=== PATIENT | male | born 1945 | race Caucasian/White ===

== ENCOUNTER 2016-04-12 17:33 | Inpatient (IN) | payer MEDICARE, SELFPAY ==
[2016-04-12] MEDS ORDERED: methylPREDNISolone SOD SUCCI 125 MG/2 ML VIAL IV STA (17:45)
[2016-04-12] MEDS ORDERED: IPRATROPIUM-ALBUTEROL 3 ML NEB INHALATION STA (17:45)
--- NOTE | 2016-04-12 17:48 | ED ---
SOB HPI - General Chief Complaint: Shortness of Breath Stated Complaint: GAYATRI exam 19 Time Seen by Provider: 04/12/16 17:44 - History of Present Illness Initial Comments: This is a 70-year-old male with a history of COPD, CAD with a pacemaker who presents emergency department for progressively worsening short of breath over last couple of days. He states he has had a productive cough. No fevers or chills. No bowel pain. No chest pain. Denies any lower [place] swelling. No recent travel. He states he was using his inhalers at home however did not have any improvement. He does not wear any oxygen at home typically. The patient was given breathing treatments in route and was on 10 L nasal cannula however continued to have labored breathing. On arrival the patient was using accessory muscles and was diffusely wheezing and started on BiPAP. - Related Data Home Medications Medication Instructions Recorded Confirmed ALPRAZolam [Xanax] 0.25 mg PO DAILY PRN 10/27/15 04/12/16 Albuterol Nebulized [Ventolin 2.5 mg INHALATION RT-BID 10/27/15 04/12/16 Nebulized] Budesonide [Pulmicort] 0.5 mg INHALATION RT-BID 10/27/15 04/12/16 Carvedilol [Coreg] 6.25 mg PO BID 10/27/15 04/12/16 Citalopram Hydrobromide 20 mg PO DAILY 10/27/15 04/12/16 Edoxaban Tosylate [Savaysa] 60 mg PO DAILY 10/27/15 04/12/16 Ipratropium Nebulized [Atrovent 0.5 mg INHALATION RT-BID 10/27/15 04/12/16 Nebulized] Ramipril [Altace] 5 mg PO DAILY 10/27/15 04/12/16 Simvastatin [Zocor] 20 mg PO HS 10/27/15 04/12/16 Azithromycin [Zithromax Z-pack] See Taper PO DAILY 04/12/16 04/12/16 Formoterol Fumarate [Perforomist] 20 mcg INHALATION RT-BID 04/12/16 04/12/16 Furosemide [Lasix] 20 mg PO DAILY 04/12/16 04/12/16 methylPREDNISolone Dose Pack See Taper PO DAILY 04/12/16 04/12/16 [Medrol Dose Pack] Allergies Allergy/AdvReac Type Severity Reaction Status Date / Time apixaban [From Eliquis] Allergy Rash/Hives Verified 10/27/15 11:10 doxycycline calcium Allergy Unknown Verified 04/12/16 18:37 [From Vibramycin] doxycycline hyclate Allergy Unknown Verified 04/12/16 18:37 [From Vibramycin] doxycycline monohydrate Allergy Unknown Verified 04/12/16 18:37 [From Vibramycin] Review of Systems ROS Statement: Those systems with pertinent positive or pertinent negative responses have been documented in the HPI. ROS Other: All systems not noted in ROS Statement are negative. Past Medical History Past Medical History: COPD, Hyperlipidemia, Osteoarthritis (OA) Additional Past Medical History / Comment(s): see Dr Abdullahi H&P History of Any Multi-Drug Resistant Organisms: None Reported Past Surgical History: Coronary Bypass/CABG, Tonsillectomy Past Anesthesia/Blood Transfusion Reactions: No Reported Reaction Past Psychological History: Anxiety Smoking Status: Former smoker Past Alcohol Use History: Occasional Additional Past Alcohol Use History / Comment(s): quit smoking 2012, smoked for 35 yrs, 1/2 PPD Past Drug Use History: None Reported - Past Family History Brother(s) Family Medical History: Cancer General Exam - General Exam Comments Initial Comments: Constitutional: Awake alert appears in moderate respiratory distress Head: Normocephalic atraumatic Eyes: no conjunctival injection No scleral icterus EOMI Neck: No JVD Supple Heart: Regular rate rhythm normal S1-S2 no murmurs Lungs: There is tachypnea with accessory muscle usage and bilateral inspiratory and expiratory wheezing No rales Abdomen: Soft nondistended nontender Extremities: Non edematous DP pulses intact Radial pulses intact Neuro: A&Ox3 No focal neurologic deficits Psych: Appropriate mood and affect Course Vital Signs 04/12/16 04/12/16 04/12/16 17:59 18:48 19:02 Temperature 97.9 F Pulse Rate 70 60 60 Respiratory 18 Rate Blood Pressure 103/68 O2 Sat by Pulse 94 L Oximetry 04/12/16 04/12/16 19:05 20:00 Temperature Pulse Rate 67 60 Respiratory 18 18 Rate Blood Pressure 100/63 107/64 O2 Sat by Pulse 100 97 Oximetry - Reevaluation(s) Reevaluation #1: 04/12/16 19:58 EKG showing a ventricular paced rhythm with a rate of 72. Appropriate ST segment changes for pacemaker. QTC is 516 in QRS is prolonged because of the pacemaker. No other acute changes. Medical Decision Making - Medical Decision Making This is a 70-year-old male presents emergency department for worsening shortness of breath. On arrival here he appeared to be in moderate respiratory distress requiring BiPAP. He is very wheezy. He was given a DuoNeb treatment and steroids. After a couple of hours of BiPAP the patient felt much improved and was weaned off to a Ventimask. He is currently very comfortable at bedside. He does have a leukocytosis. Chest x-ray was reviewed and did not show any pneumonia however the leukocytosis may be due to his steroids that he got yesterday however there is concern for infectious etiology as well the patient was started on Levaquin. I like to keep him overnight for monitorin Dr. antunez accepts the admission. - Lab Data Result diagrams: 04/12/16 17:30 04/12/16 18:55 Lab Results 04/12/16 04/12/16 04/12/16 Range/Units 17:30 17:30 17:30 WBC 21.1 H (3.8-10.6) k/uL RBC 5.03 (4.30-5.90) m/uL Hgb 15.3 (13.0-17.5) gm/dL Hct 46.9 (39.0-53.0) % MCV 93.3 (80.0-100.0) fL MCH 30.5 (25.0-35.0) pg MCHC 32.6 (31.0-37.0) g/dL RDW 13.9 (11.5-15.5) % Plt Count 303 (150-450) k/uL Neutrophils % 86 % Lymphocytes % 8 % Monocytes % 4 % Eosinophils % 0 % Basophils % 1 % Neutrophils # 18.1 H (1.3-7.7) k/uL Lymphocytes # 1.7 (1.0-4.8) k/uL Monocytes # 0.8 (0-1.0) k/uL Eosinophils # 0.1 (0-0.7) k/uL Basophils # 0.2 (0-0.2) k/uL VBG pH (7.31-7.41) VBG pCO2 (37-51) mmHg VBG HCO3 (24-28) mmol/L Sodium (137-145) mmol/L Potassium (3.5-5.1) mmol/L Chloride (98-107) mmol/L Carbon Dioxide (22-30) mmol/L Anion Gap mmol/L BUN (9-20) mg/dL Creatinine (0.66-1.25) mg/dL Est GFR (MDRD) Af Amer (>60 ml/min/1.73 sqM) Est GFR (MDRD) Non-Af (>60 ml/min/1.73 sqM) Glucose (74-99) mg/dL Calcium (8.4-10.2) mg/dL Magnesium (1.6-2.3) mg/dL Total Bilirubin (0.2-1.3) mg/dL AST (17-59) U/L ALT (21-72) U/L Alkaline Phosphatase (38-126) U/L CK-MB (CK-2) 4.3 H* (0.0-2.4) ng/mL Troponin I 0.046 H* (0.000-0.034) ng/mL NT-Pro-B Natriuret Pep 99036 pg/mL Total Protein (6.3-8.2) g/dL Albumin (3.5-5.0) g/dL Influenza Type A RNA (Not Detectd) Influenza Type B (PCR) (Not Detectd) 04/12/16 04/12/16 04/12/16 Range/Units 18:55 19:50 19:50 WBC (3.8-10.6) k/uL RBC (4.30-5.90) m/uL Hgb (13.0-17.5) gm/dL Hct (39.0-53.0) % MCV (80.0-100.0) fL MCH (25.0-35.0) pg MCHC (31.0-37.0) g/dL RDW (11.5-15.5) % Plt Count (150-450) k/uL Neutrophils % % Lymphocytes % % Monocytes % % Eosinophils % % Basophils % % Neutrophils # (1.3-7.7) k/uL Lymphocytes # (1.0-4.8) k/uL Monocytes # (0-1.0) k/uL Eosinophils # (0-0.7) k/uL Basophils # (0-0.2) k/uL VBG pH 7.27 L (7.31-7.41) VBG pCO2 49 (37-51) mmHg VBG HCO3 22 L (24-28) mmol/L Sodium 138 (137-145) mmol/L Potassium 5.5 H (3.5-5.1) mmol/L Chloride 101 (98-107) mmol/L Carbon Dioxide 22 (22-30) mmol/L Anion Gap 15 mmol/L BUN 36 H (9-20) mg/dL Creatinine 1.12 (0.66-1.25) mg/dL Est GFR (MDRD) Af Amer >60 (>60 ml/min/1.73 sqM) Est GFR (MDRD) Non-Af >60 (>60 ml/min/1.73 sqM) Glucose 136 H (74-99) mg/dL Calcium 9.3 (8.4-10.2) mg/dL Magnesium 2.3 (1.6-2.3) mg/dL Total Bilirubin 1.0 (0.2-1.3) mg/dL AST 93 H (17-59) U/L ALT 107 H (21-72) U/L Alkaline Phosphatase 102 (38-126) U/L CK-MB (CK-2) (0.0-2.4) ng/mL Troponin I (0.000-0.034) ng/mL NT-Pro-B Natriuret Pep pg/mL Total Protein 7.5 (6.3-8.2) g/dL Albumin 4.2 (3.5-5.0) g/dL Influenza Type A RNA Detected A (Not Detectd) Influenza Type B (PCR) Not Detected (Not Detectd) Disposition Clinical Impression: Hypercapnic respiratory failure, Influenza, Bronchitis Disposition: ADMITTED IP TO THIS HOSP Condition: Stable Referrals: Neptali Conn DO [Primary Care Provider] - 1-2 days
[2016-04-12 18:29] LABS: Basophils # (A) 0.2 k/uL (0-0.2); Basophils % (A) 1 %; CH 30.3; CHCM 32.6; Eosinophils # (A) 0.1 k/uL (0-0.7); Eosinophils % (A) 0 %; HCT 46.9 % (39.0-53.0); HDW 2.62; HGB 15.3 gm/dL (13.0-17.5); Immature Gran Flag Slight; Luc # (Auto) 0.23; Luc % (Auto) 1; Lymphocytes # (A) 1.7 k/uL (1.0-4.8); Lymphocytes % (A) 8 %; MCH 30.5 pg (25.0-35.0); MCHC 32.6 g/dL (31.0-37.0); MCV 93.3 fL (80.0-100.0); Mean Platelet Volume 8.1; Monocytes # (A) 0.8 k/uL (0-1.0); Monocytes % (A) 4 %; Neutrophils # (A) 18.1 k/uL (1.3-7.7); Neutrophils % (A) 86 %; RBC 5.03 m/uL (4.30-5.90); RDW 13.9 % (11.5-15.5); WBC 21.1 k/uL (3.8-10.6); WBC (Perox) 21.31
[2016-04-12 19:09] LABS: Creatine Kinase MB 4.3 ng/mL (0.0-2.4); Troponin I 0.046 ng/mL (0.000-0.034)
--- NOTE | 2016-04-12 19:19 | XR ---
EXAMINATION TYPE: XR chest 1V DATE OF EXAM: 04/12/2016 7:10 PM COMPARISON: 11/02/2015 HISTORY: Difficulty breathing TECHNIQUE: Single frontal view of the chest is obtained. FINDINGS: There is no heart failure nor confluent pneumonic infiltrate. There are no hilar masses. H eart size is normal. There are sternal wires. There is a left axillary pacemaker with the lead tips i n the right ventricle. There are chest leads. IMPRESSION: No active cardiopulmonary disease. There is clearing of a rounded small infiltrate over the left upper lobe since last exam.
[2016-04-12 19:20] LABS: ALT 107 U/L (21-72); AST 93 U/L (17-59); Alkaline Phosphatase 102 U/L (38-126); Anion Gap 15 mmol/L; Blood Urea Nitrogen 36 mg/dL (9-20); Calcium 9.3 mg/dL (8.4-10.2); Carbon Dioxide 22 mmol/L (22-30); Chloride 101 mmol/L (98-107); Glucose 136 mg/dL (74-99); Magnesium 2.3 mg/dL (1.6-2.3); Non-African American GFR(MDRD) >60 (>60 ml/min/1.73 sqM); Potassium 5.5 mmol/L (3.5-5.1); Sodium 138 mmol/L (137-145); Total Protein 7.5 g/dL (6.3-8.2)
[2016-04-12] MEDS ORDERED: LEVOFLOXACIN 500MG-D5W PMX 500 MG in DEXTROSE/WATER 1 100ML.BAG IVPB STA (19:34)
[2016-04-12 20:03] LABS: VBG PH 7.27 (7.31-7.41)
[2016-04-12] MEDS ORDERED: ACETAMINOPHEN TAB 325 MG TAB PO PRN (20:20)
[2016-04-12] MEDS ORDERED: NALOXONE 0.4 MG/ML 1 ML VIAL IV PRN (20:20)
[2016-04-12] MEDS ORDERED: ALPRAZolam 0.25 MG TAB PO PRN (20:23)
[2016-04-12 22:00] LABS: Glucose,Whole Blood 106 mg/dL (75-99)
[2016-04-12 22:23] VITALS: BMI 21.4
[2016-04-12] MEDS: ATORVASTATIN 10 MG TAB PO SCH (22:31)
[2016-04-12] MEDS: CARVEDILOL 6.25 MG TAB PO SCH (22:31)
[2016-04-12] MEDS: methylPREDNISolone SOD SUCCI 125 MG/2 ML VIAL IV SCH (22:31)
[2016-04-12] MEDS: OSELTAMIVIR 75 MG CAP PO SCH (22:31)
[2016-04-13] MEDS: MENTHOL (NICE) LOZENGE MUCOUS MEM PRN ×3 (00:14→05:27)
[2016-04-13 00:40] LABS: Creatine Kinase MB 4.8 ng/mL (0.0-2.4); Troponin I 0.054 ng/mL (0.000-0.034)
[2016-04-13] MEDS: IPRATROPIUM-ALBUTEROL 3 ML NEB INHALATION PRN ×2 (02:07→08:21)
[2016-04-13] MEDS ORDERED: BENZONATATE 100 MG CAP PO PRN (05:02)
[2016-04-13 05:57] LABS: Basophils % (A) 0 %; CH 29.9; CHCM 33.2; Eosinophils % (A) 0 %; HDW 2.64; HGB 13.5 gm/dL (13.0-17.5); Luc # (Auto) 0.04; Luc % (Auto) 1; Lymphocytes # (A) 0.3 k/uL (1.0-4.8); Lymphocytes % (A) 3 %; MCH 29.9 pg (25.0-35.0); MCHC 33.1 g/dL (31.0-37.0); MCV 90.5 fL (80.0-100.0); Mean Platelet Volume 6.5; Monocytes # (A) 0.3 k/uL (0-1.0); Monocytes % (A) 3 %; Neutrophils # (A) 9.1 k/uL (1.3-7.7); Neutrophils % (A) 93 %; RBC 4.53 m/uL (4.30-5.90); RDW 13.6 % (11.5-15.5); WBC 9.8 k/uL (3.8-10.6); WBC (Perox) 10.07
[2016-04-13 06:30] LABS: ALT 86 U/L (21-72); AST 58 U/L (17-59); Alkaline Phosphatase 87 U/L (38-126); Anion Gap 12 mmol/L; Blood Urea Nitrogen 36 mg/dL (9-20); Carbon Dioxide 24 mmol/L (22-30); Chloride 101 mmol/L (98-107); Glucose 110 mg/dL (74-99); Non-African American GFR(MDRD) >60 (>60 ml/min/1.73 sqM); Potassium 5.1 mmol/L (3.5-5.1); Sodium 137 mmol/L (137-145); Total Bilirubin 0.7 mg/dL (0.2-1.3); Total Protein 6.5 g/dL (6.3-8.2)
[2016-04-13 06:37] LABS: Troponin I 0.034 ng/mL (0.000-0.034)
[2016-04-13 07:18] LABS: Creatine Kinase MB 4.5 ng/mL (0.0-2.4)
[2016-04-13] MEDS: CITALOPRAM HYDROBROMIDE 20 MG TAB PO SCH (08:17)
[2016-04-13] MEDS: CARVEDILOL 6.25 MG TAB PO SCH ×2 (08:17→17:18)
[2016-04-13] MEDS: FUROSEMIDE 20 MG TAB PO SCH (08:17)
[2016-04-13] MEDS: EDOXABAN TOSYLATE 60 MG TABLET PO SCH (08:17)
[2016-04-13] MEDS: LISINOPRIL 20 MG TAB PO SCH (08:19)
[2016-04-13] MEDS: OSELTAMIVIR 75 MG CAP PO SCH ×2 (08:20→19:49)
[2016-04-13] MEDS: methylPREDNISolone SOD SUCCI 125 MG/2 ML VIAL IV SCH (08:20)
[2016-04-13] MEDS: SODIUM CHLORIDE 0.9% 1,000 ML IV SCH (10:32)
[2016-04-13] MEDS: IPRATROPIUM-ALBUTEROL 3 ML NEB INHALATION SCH ×3 (13:38→20:14)
--- NOTE | 2016-04-13 14:02 | P.CNPUL ---
History of Present Illness Consult date: 04/13/16 Reason for consult: dyspnea History of present illness: 70-year-old male patient, known history of advanced COPD, known history of coronary artery disease with previous bypass surgery, congestion heart failure with an ejection fraction of less than 35% and chronic atrial fibrillation and hyperlipidemia, who is coming into the hospital because of worsening shortness of breath. The patient reports that his was having a respiratory illness/ a stretcher checked infection as she was babysitting for other children. Subsequently, the patient started having nasal and chest congestion, along with generalized weakness and fatigue followed by worsening shortness of breath and he got to the point where he was unable to speak of. This is. He was having a congested cough with limited amount of mucus production. Unsure if he had any fever although he felt feverish. The patient came into the hospital and he was found to be hypoxic and placed on high flow oxygen initially and he was briefly given BiPAP for breathing support. Influenza screen was positive and the patient was started on Tamiflu. The patient was also started on acute COPD exacerbation treatment with accommodation bronchodilators and steroids. No change in mental status. No headache. No nausea. No vomiting. No abdominal pain. No diarrhea. No other complaints otherwise for now. Review of Systems Further review of system was done and the positive findings are almost above in history of present illness Past Medical History Past Medical History: COPD, Hyperlipidemia, Osteoarthritis (OA) Additional Past Medical History / Comment(s): COPD, hyperlipidemia, coronary artery disease with multivessel involvement and the patient underwent a coronary artery bypass surgery and 1996, chronic atrial fibrillation, hypertension History of Any Multi-Drug Resistant Organisms: None Reported Past Surgical History: Coronary Bypass/CABG, Tonsillectomy Additional Past Surgical History / Comment(s): AICD placement Past Anesthesia/Blood Transfusion Reactions: No Reported Reaction Past Psychological History: Anxiety Smoking Status: Former smoker Past Alcohol Use History: Occasional Additional Past Alcohol Use History / Comment(s): quit smoking 2012, smoked for 35 yrs, 1/2 PPD Past Drug Use History: None Reported - Past Family History Brother(s) Family Medical History: Cancer Medications and Allergies Home Medications Medication Instructions Recorded Confirmed Type ALPRAZolam [Xanax] 0.25 mg PO DAILY PRN 10/27/15 04/12/16 History Albuterol Nebulized [Ventolin 2.5 mg INHALATION RT-BID 10/27/15 04/12/16 History Nebulized] Budesonide [Pulmicort] 0.5 mg INHALATION RT-BID 10/27/15 04/12/16 History Carvedilol [Coreg] 6.25 mg PO BID 10/27/15 04/12/16 History Citalopram Hydrobromide 20 mg PO DAILY 10/27/15 04/12/16 History Edoxaban Tosylate [Savaysa] 60 mg PO DAILY 10/27/15 04/12/16 History Ipratropium Nebulized [Atrovent 0.5 mg INHALATION RT-BID 10/27/15 04/12/16 History Nebulized] Ramipril [Altace] 5 mg PO DAILY 10/27/15 04/12/16 History Simvastatin [Zocor] 20 mg PO HS 10/27/15 04/12/16 History Azithromycin [Zithromax Z-pack] See Taper PO DAILY 04/12/16 04/12/16 History Formoterol Fumarate [Perforomist] 20 mcg INHALATION RT-BID 04/12/16 04/12/16 History Furosemide [Lasix] 20 mg PO DAILY 04/12/16 04/12/16 History methylPREDNISolone Dose Pack See Taper PO DAILY 04/12/16 04/12/16 History [Medrol Dose Pack] Allergies Allergy/AdvReac Type Severity Reaction Status Date / Time apixaban [From Eliquis] Allergy Rash/Hives Verified 10/27/15 11:10 doxycycline calcium Allergy Unknown Verified 04/12/16 18:37 [From Vibramycin] doxycycline hyclate Allergy Unknown Verified 04/12/16 18:37 [From Vibramycin] doxycycline monohydrate Allergy Unknown Verified 04/12/16 18:37 [From Vibramycin] Physical Exam Vitals: Vital Signs Temp Pulse Pulse Resp BP BP Pulse Ox 04/13/16 13:42 68 04/13/16 13:24 68 04/13/16 12:00 97.0 F L 105 H 20 133/70 96 04/13/16 08:36 62 04/13/16 08:22 60 95 04/13/16 08:00 97.6 F 62 60 23 138/71 138/71 96 04/13/16 07:00 97.6 F 60 26 H 116/71 96 04/13/16 04:00 97.5 F L 60 66 18 116/71 97 04/13/16 02:15 61 04/13/16 02:00 60 04/13/16 00:00 98.3 F 60 18 119/75 97 04/12/16 23:10 66 18 04/12/16 22:00 59 L 20 131/75 96 04/12/16 21:21 98.9 F 62 18 123/77 97 04/12/16 21:02 97.7 F 66 20 131/75 97 Intake and Output 04/12/16 04/13/16 04/13/16 22:59 06:59 14:59 Intake Total 360 220 Output Total 320 375 Balance 40 -155 Intake: Intake, IV Titration 20 Amount Sodium Chloride 0.9% 1, 20 000 ml @ 20 mls/hr IV . Q24H [facility] Rx#:[id number] Oral 360 200 Output: Urine 320 375 Other: Voiding Method Toilet Urinal Weight 71.8 kg 71.9 kg Head exam was generally normal. There was no scleral icterus or corneal arcus. Mucous membranes were moist.Neck was supple and without jugular venous distension, thyromegaly, or carotid bruits. Carotids were easily palpable bilaterally. There was no adenopathy. Lung sounds are diminished bilaterally and there is diffuse expiratory wheezes throughout the lung brooks.Cardiac exam revealed the PMI to be normally situated and sized. The rhythm was regular and no extrasystoles were noted during several minutes of auscultation. The first and second heart sounds were normal and physiologic splitting of the second heart sound was noted. There were no murmurs, rubs, clicks, or gallops.Abdominal exam revealed normal bowel sounds. The abdomen was soft, non- tender, and without masses, organomegaly, or appreciable enlargement of the abdominal aorta.Examination of the extremities revealed easily palpable radial, femoral and pedal pulses. There was no cyanosis, clubbing or edema. Results - Laboratory Findings CBC and BMP: 04/13/16 05:09 04/13/16 05:09 Abnormal lab findings: Abnormal Labs 04/12/16 04/12/16 04/13/16 21:56 23:51 05:09 Neutrophils # 9.1 H Lymphocytes # 0.3 L BUN Glucose POC Glucose (mg/dL) 106 H ALT Total Creatine Kinase 444 H CK-MB (CK-2) 4.8 H* Troponin I 0.054 H* 04/13/16 04/13/16 05:09 05:09 Neutrophils # Lymphocytes # BUN 36 H Glucose 110 H POC Glucose (mg/dL) ALT 86 H Total Creatine Kinase 171 H CK-MB (CK-2) 4.5 H* Troponin I - Diagnostic Findings Chest x-ray: image reviewed Assessment and Plan Plan: Assessment 1 acute COPD exacerbation secondary to an acute influenza and respiratory infection/bronchitis. 2 worsening shortness of breath secondary to above 3 acute hypoxic respiratory failure secondary to above, improving 4 coronary artery disease with previous bypass surgery 5 congestion heart failure with impaired LV function 6 hyperlipidemia 7 hypertension 8 AICD placement for underlying cardiomyopathy Plan Agree on the current treatment. Continue bronchi dilators. Continue systemic steroids. Continue Tamiflu. Mucinex may be at 4 chest congestion. States further improvement over the next 24-48 hours. Keep the patient's appetite ventilation for now. May consider discharge within next 24-48 hours as the patient's condition improved. Mother the patient remains on a combination of Pulmicort and Brovana neb last treatment twice a day in addition to albuterol about treatments around the clock as needed.
--- NOTE | 2016-04-13 17:02 | HP ---
DATE OF ADMISSION: 04/12/2016 PRESENTING COMPLAINT: Cough, short of breath. HISTORY OF PRESENTING COMPLAINT: This is a very pleasant 70-year-old patient of , whose chronic stable medical conditions include coronary artery disease; ejection fraction of 20%, left bundle branch block. The patient started up with 3 days of increasing cough, congestion, decreased appetite, fever and found to have the flu. Patient also wheezing, short of breath and admitted for the same. REVIEW OF SYSTEMS: CONSTITUTIONAL: Tired. HEENT: As above. RESPIRATORY: As above. CARDIOVASCULAR: None. GASTROINTESTINAL: None. GENITOURINARY: None. MUSCULOSKELETAL: None. DERMATOLOGIC: None. HEMATOLOGIC: None. LYMPHATIC: None. PSYCHIATRY: None. NEUROLOGICAL: None. Past medical history of coronary artery disease, congestive heart failure; ejection fraction 20%, left bundle branch block, COPD, hyperlipidemia. Osteoarthritis. PAST SURGICAL HISTORY: Coronary artery bypass, tonsillectomy, ICD. SOCIAL HISTORY: The patient smoked for 35 years half a pack per day; stopped in 2012. Currently not employed. FAMILY HISTORY: Cancer. HOME MEDICATIONS: 1. Medrol Dosepak. 2. Perforomist 30 mcg inhalation b.i.d. 3. Zithromax taper. 4. Coreg 6.25 p.o. b.i.d. 5. Pulmicort 0.5 nebulizer b.i.d. 6. Ventolin 2.5 b.i.d. 7. Xanax 0.25 daily p.r.n. 8. Atrovent 0.5 nebulizer b.i.d. 9. Lasix 20 mg b.i.d. 10. Savaysa 60 mg p.o. daily. 11. Celexa 20 mg p.o. daily. 12. Zocor 20 mg q.h.s. 13. Altace 5 mg p.o. daily. ALLERGY TO ELIQUIS, VIBRAMYCIN, DOXYCYCLINE. On examination vital signs on presentation: Temperature 97.9, pulse 70, respiratory rate 18, blood pressure 103/58, pulse ox 94% on room air. GENERAL APPEARANCE: Average built, sitting up, short of breath. EYES: Pupils equal. Conjunctivae normal. HEENT: Oral cavity normal. NECK: JVD not raised. Mass not palpable. RESPIRATORY: Effort increased. LUNGS: Diminished breath sounds, prolonged expiration and wheezing. CARDIOVASCULAR: First and second sounds normal. No edema. ABDOMEN: Soft. Nontender. Liver and spleen not palpable. LYMPHATIC: No lymph node palpable in the neck or axillae. PSYCHIATRY: Alert and oriented x3. Mood and affect normal. NEUROLOGICAL: Pupils equal. Cranial nerves grossly intact. Power and sensation grossly intact. INVESTIGATIONS: White count 9.8, hemoglobin 13.5. Potassium 5.1, BUN 36, creatinine 0.90. Troponin 0.054, 0.034, 0.046. ProBNP 18,500. Influenza ( ) positive. Chest x-ray shows some cardiomegaly. No CHF. ASSESSMENT: 1. Acute chronic obstructive pulmonary disease exacerbation. 2. Acute influenza A infection. 3. Coronary artery disease with prior history of coronary artery bypass. 4. Chronic congestive heart failure from systolic dysfunction; ejection fraction 20%, compensated. 5. Chronic left bundle brunch block. 6. Automatic implantable cardioverter defibrillator. 7. Hyperlipidemia. 8. Primary osteoarthritis of multiple joints. 9. Depression, not otherwise specified. PLAN: Patient was put on Tamiflu. Home medications are resumed. Patient put on nebulized bronchodilator, IV Solu-Medrol. Care was discussed with the patient. Keep a close eye. Patient probably has a high resting BNP.
[2016-04-13] MEDS: methylPREDNISolone SOD SUCCI 40 MG/ML 1 ML VIAL IV SCH ×2 (17:18→23:37)
[2016-04-13] MEDS: ATORVASTATIN 10 MG TAB PO SCH (19:49)
[2016-04-14] MEDS: CARVEDILOL 6.25 MG TAB PO SCH (06:33)
[2016-04-14] MEDS: SODIUM CHLORIDE 0.9% 1,000 ML IV SCH (06:36)
[2016-04-14] MEDS: LISINOPRIL 20 MG TAB PO SCH (07:50)
[2016-04-14] MEDS: methylPREDNISolone SOD SUCCI 40 MG/ML 1 ML VIAL IV SCH (07:50)
[2016-04-14] MEDS: EDOXABAN TOSYLATE 60 MG TABLET PO SCH (07:50)
[2016-04-14] MEDS: FUROSEMIDE 20 MG TAB PO SCH (07:51)
[2016-04-14] MEDS: CITALOPRAM HYDROBROMIDE 20 MG TAB PO SCH (07:51)
[2016-04-14] MEDS: OSELTAMIVIR 75 MG CAP PO SCH (07:51)
[2016-04-14] MEDS ORDERED: BUDESONIDE 1 MG/2 ML NEBU INHALATION SCH (08:00)
[2016-04-14] MEDS ORDERED: FORMOTEROL FUMARATE 20 MCG/2 ML NEBU INHALATION SCH (08:00)
[2016-04-14] MEDS: IPRATROPIUM-ALBUTEROL 3 ML NEB INHALATION SCH ×3 (08:22→15:13)
[2016-04-14 08:39] VITALS: TEMP 98.2
[2016-04-14 12:17] VITALS: BP 117/66; RESP 18
--- NOTE | 2016-04-14 15:09 | P.PN ---
Subjective 70-year-old male patient, known history of advanced COPD, known history of coronary artery disease with previous bypass surgery, congestion heart failure with an ejection fraction of less than 35% and chronic atrial fibrillation and hyperlipidemia, who is coming into the hospital because of worsening shortness of breath. The patient reports that his was having a respiratory illness/ a stretcher checked infection as she was babysitting for other children. Subsequently, the patient started having nasal and chest congestion, along with generalized weakness and fatigue followed by worsening shortness of breath and he got to the point where he was unable to speak of. This is. He was having a congested cough with limited amount of mucus production. Unsure if he had any fever although he felt feverish. The patient came into the hospital and he was found to be hypoxic and placed on high flow oxygen initially and he was briefly given BiPAP for breathing support. Influenza screen was positive and the patient was started on Tamiflu. The patient was also started on acute COPD exacerbation treatment with accommodation bronchodilators and steroids. No change in mental status. No headache. No nausea. No vomiting. No abdominal pain. No diarrhea. No other complaints otherwise for now. On 04/14/2016 the patient is considerably improved. He is less short of breath. Enema cough and chest congestion over this is improved and the patient is able to speak of. This is an embolectomy the hallway without any major difficulties. He is still being treated for an acute influenza tracheal bronchitis and COPD exacerbation. He is currently off the BiPAP. No change in mental status. No other complaints overnight. Objective - Vital Signs Vital signs: Vital Signs Temp 98.2 F 04/14/16 12:00 Pulse 61 04/14/16 12:00 Resp 18 04/14/16 12:00 BP 117/66 04/14/16 12:00 Pulse Ox 95 04/14/16 12:00 Intake & Output 04/13/16 04/14/16 04/14/16 18:59 06:59 18:59 Intake Total 220 240 Output Total 375 Balance -155 240 Weight 70.6 kg Intake: IV 240 Sodium Chloride 0.9% 1, 240 000 ml @ 20 mls/hr IV . Q24H [facility] Rx#:[id number] Intake, IV Titration 20 Amount Sodium Chloride 0.9% 1, 20 000 ml @ 20 mls/hr IV . Q24H [facility] Rx#:[id number] Oral 200 Output: Urine 375 Other: Voiding Method Toilet Urinal # Voids 1 - Exam Head exam was generally normal. There was no scleral icterus or corneal arcus. Mucous membranes were moist.Neck was supple and without jugular venous distension, thyromegaly, or carotid bruits. Carotids were easily palpable bilaterally. There was no adenopathy. Lung sounds are diminished bilaterally along with some few scattered expiratory wheezes and some prolongation of the expiratory phase of breathing.Cardiac exam revealed the PMI to be normally situated and sized. The rhythm was regular and no extrasystoles were noted during several minutes of auscultation. The first and second heart sounds were normal and physiologic splitting of the second heart sound was noted. There were no murmurs, rubs, clicks, or gallops.Abdominal exam revealed normal bowel sounds. The abdomen was soft, non-tender, and without masses, organomegaly, or appreciable enlargement of the abdominal aorta.Examination of the extremities revealed easily palpable radial, femoral and pedal pulses. There was no cyanosis , clubbing or edema. - Labs CBC & Chem 7: 04/13/16 05:09 04/13/16 05:09 Assessment and Plan Plan: Assessment 1 acute COPD exacerbation secondary to an acute influenza and respiratory infection/bronchitis. On 04/14/2016, the patient is considerably improved. The patient got treated with a combination of bronchodilators, systemic steroids, Tamiflu and Mucinex. His breathing is much improved and he thinks is back to his baseline. 2 worsening shortness of breath secondary to above 3 acute hypoxic respiratory failure secondary to above, improving 4 coronary artery disease with previous bypass surgery 5 congestion heart failure with impaired LV function 6 hyperlipidemia 7 hypertension 8 AICD placement for underlying cardiomyopathy Plan The patient can be discharged home follow pulmonary standpoint. He'll completed his prednisone burst taper and Tamiflu on outpatient basis. He'll continue his routine breathing medications of bronchodilators. He will follow- up with Dr. Florez on outpatient basis.
[2016-04-14 15:15] VITALS: PULSE 72
--- NOTE | 2016-04-14 20:24 | DS ---
DATE OF ADMISSION: 04/12/2016 DATE OF DISCHARGE: 04/14/2016 FINAL DIAGNOSES: 1. Acute chronic obstructive pulmonary disease exacerbation secondary to acute influenza A pneumonitis, present on admission. 2. Coronary artery disease with prior history of coronary artery bypass. 3. Chronic congestive heart failure from systolic dysfunction; ejection fraction 20%, compensated. 4. Chronic left bundle branch block. 5. Automatic implantable cardioverter defibrillator. 6. Hyperlipidemia. 7. Primary osteoarthritis in multiple joints, bilateral. 8. Depression not otherwise specified. CONSULTATION: Dr. Wisdom from Pulmonary. HOSPITAL COURSE: This patient had influenza A pneumonitis causing COPD exacerbation, given Tamiflu, nebulized bronchodilators, steroids, to which he has responded well. On the day of discharge he is doing much better. On exam, lungs have decreased breath sounds. CARDIOVASCULAR: First and second seconds normal. DISCHARGE MEDICATIONS: 1. Xanax 0.25 p.o. daily p.r.n. 2. Ventolin 2.5 b.i.d. 3. Pulmicort 0.5 inhalation b.i.d. 4. Coreg 6.25 p.o. b.i.d. 5. Celexa 20 mg p.o. daily. 6. Savaysa 60 mg p.o. daily. 7. Atrovent 0.5 nebulizer b.i.d. 8. Altace 5 mg p.o. daily. 9. Zocor 20 mg p.o. at bedtime. 10. Perforomist 20 mcg inhalation b.i.d. 11. Lasix 20 mg p.o. daily. 12. Medrol Dosepak to complete. 13. Tessalon Perles 200 mg p.o. t.i.d. p.r.n. 14. Tamiflu 75 mg p.o. q.12; 6 doses. Follow up with Dr. Conn on 04/18/16.
== END 2016-04-14 16:59 | disposition home or self-care (01) | DRG 193 ==
LOC: EC 17:33 → 6ICU 20:20 → 6SEL 04-13 10:08
PROVIDERS: ADMIT Hospitalist; ATTEND Hospitalist
DX: J10.00 Influenza due to other identified influenza virus with unspecified type of pneumonia (principal); J96.01 Acute respiratory failure with hypoxia; J44.1 Chronic obstructive pulmonary disease with (acute) exacerbation; I50.22 Chronic systolic (congestive) heart failure; I42.8 Other cardiomyopathies; I48.2 Chronic atrial fibrillation; I11.0 Hypertensive heart disease with heart failure; I44.7 Left bundle-branch block, unspecified; J10.1 Influenza due to other identified influenza virus with other respiratory manifestations; I25.10 Atherosclerotic heart disease of native coronary artery without angina pectoris; E78.5 Hyperlipidemia, unspecified; M19.91 Primary osteoarthritis, unspecified site; F32.9 Major depressive disorder, single episode, unspecified; F41.9 Anxiety disorder, unspecified; Z95.1 Presence of aortocoronary bypass graft; Z95.810 Presence of automatic (implantable) cardiac defibrillator; Z87.891 Personal history of nicotine dependence; Z79.01 Long term (current) use of anticoagulants; Z79.51 Long term (current) use of inhaled steroids; Z79.52 Long term (current) use of systemic steroids; Z79.899 Other long term (current) drug therapy
CPT/HCPCS: 36415; 71010; 80053; 82550; 82553; 82803; 83735; 83880; 84484; 85025; 87502; 93005; 94640; 94660; 96365; 99285

== ENCOUNTER → 2016-06-01 | Outpatient (CLI) | payer MEDICARE ==
[2016-06-01 12:55] LABS: Blood Urea Nitrogen 24 mg/dL (9-20); Non-African American GFR(MDRD) 60 (>60 ml/min/1.73 sqM)
--- NOTE | 2016-06-01 17:12 | CT ---
EXAMINATION TYPE: CT chest w con DATE OF EXAM: 06/01/2016 1:26 PM COMPARISON: NONE HISTORY: Patient has no complaints at time of study. Follow up study for known SAPPHIRE nodule. CT DLP: 564 mGycm, Automated exposure control for dose reduction was used. CONTRAST: Performed injected with 100 mL of Omnipaque 300. TECHNIQUE: Axial images were obtained at 5 mm thick sections. Reconstructed images are reviewed on [employer] computer in the coronal plane. FINDINGS: Portion of the thyroid visualized is normal. No suspicious lung nodules or focal infiltrates are present. Multiple shotty lymph nodes are within the pretracheal space and the aortopulmonic window. The ascen ding aorta diameter at the level of the main pulmonary artery is 3.6 cm. The main pulmonary artery d iameter at the bifurcation is 2.[address] sections are obtained through the upper abdomen. Abdomen is essentially unremarkable. IMPRESSIONS: 1. Shotty lymphadenopathy within the mediastinum. No acute process is evident. 2. Previous left upper lobe nodule has resolved.
== END | disposition home or self-care (01) ==
LOC: RADCTMAIN 12:19
PROVIDERS: ATTEND Internal Medicine
DX: R91.8 Other nonspecific abnormal finding of lung field (principal); R59.0 Localized enlarged lymph nodes
CPT/HCPCS: 82565; 84520; 71260; Q9967

== ENCOUNTER → 2016-06-28 | Outpatient (CLI) | payer MEDICARE ==
[2016-06-28 13:52] LABS: ALT 25 U/L (21-72); AST 24 U/L (17-59); Alkaline Phosphatase 65 U/L (38-126); Anion Gap 7 mmol/L; Blood Urea Nitrogen 23 mg/dL (9-20); Calcium 9.5 mg/dL (8.4-10.2); Carbon Dioxide 30 mmol/L (22-30); Chloride 102 mmol/L (98-107); Cholesterol 148 mg/dL (<200); Glucose 103 mg/dL (74-99); HDL Cholesterol 66 mg/dL (40-60); Non-African American GFR(MDRD) >60 (>60 ml/min/1.73 sqM); Potassium 4.7 mmol/L (3.5-5.1); Sodium 139 mmol/L (137-145); Total Bilirubin 0.9 mg/dL (0.2-1.3); Triglycerides 67 mg/dL (<150)
--- NOTE | 2016-06-28 15:38 | CT ---
EXAMINATION TYPE: CT angio thoracic/abd aorta DATE OF EXAM: 06/28/2016 2:36 PM COMPARISON: 11/04/2015, 08/20/2014, 12/16/2012 HISTORY: 70-year-old male thoracic aneurysm, ruptured TECHNIQUE: Contiguous axial scanning of the chest and abdomen performed without and with IV Contrast, patient injected with 100 mL of Omnipaque 350. Coronal/sagittal MIP reconstructions performed. 3-D r econstructions generated on a dedicated independent workstation. CT DLP: 593.4 mGycm Automated exposure control for dose reduction was used. FINDINGS: CHEST: Left anterior chest wall AICD generator with right atrial, right ventricular, and coronary sinus lead s. Median sternotomy wires are present. The heart is normal size without pericardial effusion. - The ascending aorta is ectatic at 3.9 cm versus 4.0 cm measured on 12/16/2012. - Mild to moderate atherosclerotic change involving the aortic arch with conventional arch vessel bra nching anatomy. - There is mild aneurysm of the upper descending thoracic aorta at 3.2 cm versus 3.3 cm on 12/16/2012 . - Additional ectasia of the lower descending thoracic aorta at 2.8 cm versus 2.9 cm on 12/16/2012. Prominent precarinal lymph node measuring 1 cm is unchanged. Otherwise, no thoracic lymphadenopathy b y CT size criteria. Advanced emphysematous change. No consolidation or pleural effusion. ABDOMEN: There is a 1.1 cm hypodense lesion within the central left liver lobe likely small cyst. Gallbladder, adrenal glands, spleen, and atrophic pancreas show no gross abnormal mobility. Bilateral renal cortical thinning suggests chronic medical renal disease. Stable 1.5 cm hypodense les ion lower pole right kidney and small 1 cm or smaller hypodense lesions upper pole left kidney sugges tive of cysts. Moderate atherosclerotic calcifications and plaque throughout the abdominal aorta. - There is ectasia of the upper abdominal aorta 2.9 cm. - The origin of both celiac axis and SMA are patent. - Mild atherosclerotic calcifications at the origin of the right renal artery. - There is ectasia of the mid abdominal aorta just below the renal artery takeoff measuring 2.9 cm on both axial and sagittal series, unchanged from 08/20/2014. - There is fusiform aneurysm of the infrarenal abdominal aorta measuring 4.0 cm wide by 4.1 cm AP low sured on coronal and sagittal series. This is in comparison to 4.0 x 3.9 cm on 08/20/2014. Circumferent ial thrombus and plaque is present here. - There is a stable aneurysm (as compared to 08/20/2014) of the left common iliac artery measuring 1.9 cm with what appears to be a 2.2 cm long dissection narrowing the true lumen to approximately 4 mm. - The right common iliac artery shows moderate atherosclerotic calcifications but normal caliber. No dilated small bowel, free fluid, or free air. No mesenteric or retroperitoneal lymphadenopathy. Sc attered mild stool. Mild left hemicolonic diverticulosis without pericolonic inflammatory change. BONES: Laminectomy change within the lower lumbar spine. No osseous destructive process. IMPRESSION: 1. ECTASIA/BORDERLINE ANEURYSM ASCENDING AORTA AT 3.9 CM. ADDITIONAL MILD ANEURYSM UPPER DESCENDING T HORACIC AORTA (3.2 CM) AND ECTASIA OF THE DISTAL DESCENDING THORACIC AORTA (2.8 CM). NO SIGNIFICANT C HANGE FROM 12/16/2012. 2. ECTATIC ABDOMINAL AORTA WITH FUSIFORM AAA MEASURING 4.0 X 4.1 CM VERSUS 4.0 X 3.9 CM ON 08/20/2014, NOT SIGNIFICANTLY CHANGED. 3. 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 4. COPD WITH ADVANCED EMPHYSEMA AND MILD LEFT HEMICOLONIC DIVERTICULOSIS.
== END | disposition home or self-care (01) ==
LOC: RADCTMAIN 12:49
PROVIDERS: ATTEND Internal Medicine Interventional Cardiology
DX: I71.2 Thoracic aortic aneurysm, without rupture (principal); I71.4 Abdominal aortic aneurysm, without rupture; I72.3 Aneurysm of iliac artery; K57.30 Diverticulosis of large intestine without perforation or abscess without bleeding; E78.2 Mixed hyperlipidemia
CPT/HCPCS: 80061; 80053; 75635; 71275; 36415; Q9967

== ENCOUNTER 2016-07-15 09:29 | Inpatient (IN) | payer MEDICARE, SELFPAY ==
[~2016-07-15 09:29] MED LIST: EPINEPHrine 10 ML SYRINGE (0.1 MG/ML) ONE
[2016-07-15] MEDS ORDERED: DEXTROSE 5% IN WATER 100 ML with AMIODARONE 150 MG IV ONE (09:42)
[2016-07-15] MEDS ORDERED: AMIODARONE 450 MG in DEXTROSE 5% IN WATER 250 ML IV ONE ×2 (09:42)
[2016-07-15] MEDS ORDERED: RX INFO: IV CONTRAST WAS GIVEN 1 EACH MISC MISCELLANE PRN (09:49)
--- NOTE | 2016-07-15 09:49 | ED ---
General Adult HPI - General Stated complaint: Unresponsive Time Seen by Provider: 07/15/16 09:29 Source: family, EMS Mode of arrival: EMS Limitations: altered mental status, physical limitation - History of Present Illness Initial comments: Patient is a 70-year-old male presenting to the emergency department priority one by EMS. Patient originally had called for difficulty in breathing. EMS received a call at 8:48 AM. He did arrive at 852. 09/26/1955 EMS did witness loss of pulse with respiratory rate 3-4 per minute. Patient is unresponsive and provides no information. Patient had recent computed tomography scan showing several areas of aneurysm throughout the aorta with some chronic dissection. Patient was recently discharged from [facility]. Patient has chronic COPD. There was question whether or not patient has a DO NOT RESUSCITATE order. Further information taking from the states that is a standard order that if patient is unable to be returned to a normal state that he would not want prolonged care. EMS did provide to epinephrine. They state patient's defibrillator has gone off. - Related Data Home Medications Medication Instructions Recorded Confirmed Budesonide [Pulmicort] 0.5 mg INHALATION RT-BID 10/27/15 07/15/16 Citalopram Hydrobromide 20 mg PO QAM 10/27/15 07/15/16 [Citalopram HBr] Edoxaban Tosylate [Savaysa] 60 mg PO QAM 10/27/15 07/15/16 Ramipril [Altace] 5 mg PO QAM 10/27/15 07/15/16 Simvastatin [Zocor] 20 mg PO HS 10/27/15 07/15/16 Formoterol Fumarate [Perforomist] 20 mcg INHALATION RT-BID 04/12/16 07/15/16 Furosemide [Lasix] 20 mg PO QAM 04/12/16 07/15/16 methylPREDNISolone Dose Pack See Taper PO DAILY 04/12/16 07/15/16 [Medrol Dose Pack] ALPRAZolam [Xanax] 0.125 mg PO BID PRN 07/15/16 07/15/16 ALPRAZolam [Xanax] 0.25 mg PO BID PRN 07/15/16 07/15/16 Albuterol Inhaler [Ventolin Hfa 2 puff INHALATION RT-Q6H PRN 07/15/16 07/15/16 Inhaler] Carvedilol [Coreg] 6.25 mg PO BID 07/15/16 07/15/16 Ipratropium-Albuterol Nebulize 3 ml INHALATION RT-TID PRN 07/15/16 07/15/16 [Duoneb 0.5 mg-3 mg/3 ml Soln] Allergies Allergy/AdvReac Type Severity Reaction Status Date / Time apixaban [From Eliquis] Allergy Rash/Hives Verified 07/15/16 11:32 doxycycline Allergy Rash/Hives Verified 07/15/16 11:32 Review of Systems ROS Statement: Those systems with pertinent positive or pertinent negative responses have been documented in the HPI. ROS Other: All systems not noted in ROS Statement are negative. Limitations: ROS unobtainable due to patients medical condition Respiratory: Reports: dyspnea Past Medical History Past Medical History: COPD, Hyperlipidemia, Osteoarthritis (OA) Additional Past Medical History / Comment(s): COPD, hyperlipidemia, coronary artery disease with multivessel involvement and the patient underwent a coronary artery bypass surgery and 1996, chronic atrial fibrillation, hypertension History of Any Multi-Drug Resistant Organisms: None Reported Past Surgical History: Coronary Bypass/CABG, Tonsillectomy Additional Past Surgical History / Comment(s): AICD placement Past Anesthesia/Blood Transfusion Reactions: No Reported Reaction Past Psychological History: Anxiety Smoking Status: Former smoker Past Alcohol Use History: Occasional Additional Past Alcohol Use History / Comment(s): quit smoking 2012, smoked for 35 yrs, 1/2 PPD Past Drug Use History: None Reported - Past Family History Brother(s) Family Medical History: Cancer General Exam Limitations: altered mental status, physical limitation General appearance: obtunded Head exam: Present: atraumatic Eye exam: Present: other (Pupils fixed and dilated) ENT exam: Present: other (Intubated) Neck exam: Present: normal inspection Respiratory exam: Present: other (No spontaneous breath sounds. Patient is intubated with equal breath sounds bilaterally with bagging insufflation.) Cardiovascular Exam: Present: other (Upon arrival no heart sounds and no spontaneous pulse.) GI/Abdominal exam: Present: soft. Absent: distended Extremities exam: Present: normal inspection Neurological exam: Present: other (Unresponsive) Psychiatric exam: Present: other (Unresponsive) Skin exam: Present: normal color Course Vital Signs 07/15/16 07/15/16 07/15/16 09:29 09:34 09:45 Temperature 97.8 F Pulse Rate 151 H 149 H 60 Respiratory 20 16 16 Rate Blood Pressure 159/104 145/80 98/61 O2 Sat by Pulse 95 99 99 Oximetry 07/15/16 07/15/16 07/15/16 10:00 10:20 10:36 Temperature 97.8 F Pulse Rate 60 60 60 Respiratory 16 16 16 Rate Blood Pressure 90/55 109/54 95/37 O2 Sat by Pulse 98 100 99 Oximetry 07/15/16 07/15/16 07/15/16 10:42 10:55 11:10 Temperature Pulse Rate 71 60 60 Respiratory 16 20 16 Rate Blood Pressure 73/49 89/51 101/58 O2 Sat by Pulse 99 99 100 Oximetry 07/15/16 07/15/16 07/15/16 11:25 11:40 12:00 Temperature 97.8 F Pulse Rate 60 60 60 Respiratory 16 18 18 Rate Blood Pressure 100/59 98/55 100/59 O2 Sat by Pulse 99 100 100 Oximetry 07/15/16 07/15/16 07/15/16 12:24 12:40 13:02 Temperature Pulse Rate 62 61 60 Respiratory 16 16 16 Rate Blood Pressure 101/57 107/55 96/54 O2 Sat by Pulse 98 99 97 Oximetry 07/15/16 07/15/16 07/15/16 13:45 14:18 14:31 Temperature Pulse Rate 60 60 61 Respiratory 16 16 16 Rate Blood Pressure 91/44 100/48 101/50 O2 Sat by Pulse 98 96 97 Oximetry - Reevaluation(s) Reevaluation #1: 07/15/16 09:46 Upon patient arrival patient is in V. fib and his defibrillator did fire. This did convert patient to sinus tachycardia. Patient did receive 1 mg of epinephrine and after a short period of time did have return of pulse. Family is at bedside. 07/15/16 10:15 Patient lost pulse and ACLS protocol and CPR started again. Patient received 2 epinephrine with return of pulse after approximately 10 minutes of CPR. EKG Findings - EKG Comments: EKG Findings:: Paced rhythm at 60. QRS 164. QTC 556. QTc 556. Left axis. Wide-complex QRS. Nonspecific ST-T. Procedures - Chest Tube Insertion Consent Obtained: emergent situation Time Out Performed: Yes Indication: Pneumothorax Placed on monitor/pulse oximetry: Yes Site Prep: Chloroprep Local Anesthesia: Lidocaine 1% Insertion Site: 5th Intercostal Space (Anterior axillary line) Scalpel: #10 Open into Pleural Space Using: Zohreh Clamp Tube Size ([place] Citizen): 28 Returns: Air Sutured in Place: Yes Type of Suture: Nylon Dressing Applied: Petroleum Gauze Attached to Suction: Yes Type of Suction: Pleuravac Repeat X-ray Results: Lung Inflated Patient Tolerated Procedure: well, no complications Medical Decision Making - Medical Decision Making Patient earlier was found to have decreased tidal volumes and then. Follow-up x -ray showed NG tube placed left been some bronchus and this was promptly removed with improvement of tidal volumes. Family was updated multiple times. Case was discussed with Dr. Beckford, who will admit for hospital call. Case was discussed with Dr. Florez, who will consult for critical care and requests neurology evaluation. He does request chest tube placement. Chest tube was placed. Family again updated. Family does want patient to be full code at this time. Admission orders written. - Lab Data Result diagrams: 07/15/16 09:48 07/15/16 09:48 Lab Results 07/15/16 07/15/16 07/15/16 Range/Units 09:48 09:48 09:48 WBC 16.9 H (3.8-10.6) k/uL RBC 4.22 L (4.30-5.90) m/uL Hgb 13.3 (13.0-17.5) gm/dL Hct 42.1 (39.0-53.0) % MCV 99.7 (80.0-100.0) fL MCH 31.4 (25.0-35.0) pg MCHC 31.5 (31.0-37.0) g/dL RDW 13.5 (11.5-15.5) % Plt Count 244 (150-450) k/uL Neutrophils % 79 % Lymphocytes % 16 % Monocytes % 4 % Eosinophils % 1 % Basophils % 0 % Neutrophils # 13.3 H (1.3-7.7) k/uL Lymphocytes # 2.6 (1.0-4.8) k/uL Monocytes # 0.6 (0-1.0) k/uL Eosinophils # 0.1 (0-0.7) k/uL Basophils # 0.1 (0-0.2) k/uL Hypochromasia Marked PT (9.0-12.0) sec INR (<1.1) APTT (22.0-30.0) sec Sample Site ABG pH (7.35-7.45) ABG pCO2 (35-45) mmHg ABG pO2 (83-108) mmHg ABG HCO3 (21-25) mmol/L ABG Total CO2 (19-24) mmol/L ABG O2 Saturation (94-97) % ABG Base Excess mmol/L FiO2 % Sodium 139 (137-145) mmol/L Potassium 4.7 (3.5-5.1) mmol/L Chloride 107 (98-107) mmol/L Carbon Dioxide 11 L (22-30) mmol/L Anion Gap 21 mmol/L BUN 27 H (9-20) mg/dL Creatinine 1.28 H (0.66-1.25) mg/dL Est GFR (MDRD) Af Amer >60 (>60 ml/min/1.73 sqM) Est GFR (MDRD) Non-Af 55 (>60 ml/min/1.73 sqM) Glucose 358 H (74-99) mg/dL POC Glucose (mg/dL) (75-99) mg/dL POC Glu Extruder Tender ID Calcium 8.3 L (8.4-10.2) mg/dL Magnesium 2.8 H (1.6-2.3) mg/dL Total Bilirubin 0.8 (0.2-1.3) mg/dL AST 130 H (17-59) U/L ALT 98 H (21-72) U/L Alkaline Phosphatase 42 (38-126) U/L Total Creatine Kinase 144 (55-170) U/L CK-MB (CK-2) 3.0 H* (0.0-2.4) ng/mL CK-MB (CK-2) Rel Index 2.1 Troponin I 0.037 H* (0.000-0.034) ng/mL Total Protein 5.3 L (6.3-8.2) g/dL Albumin 2.9 L (3.5-5.0) g/dL Urine Color Urine Appearance (Clear) Urine pH (5.0-8.0) Ur Specific Reagan (1.001-1.035) Urine Protein (Negative) Urine Glucose (UA) (Negative) Urine Ketones (Negative) Urine Blood (Negative) Urine Nitrite (Negative) Urine Bilirubin (Negative) Urine Urobilinogen (<2.0) mg/dL Ur Leukocyte Esterase (Negative) 07/15/16 07/15/16 07/15/16 Range/Units 09:48 09:58 10:22 WBC (3.8-10.6) k/uL RBC (4.30-5.90) m/uL Hgb (13.0-17.5) gm/dL Hct (39.0-53.0) % MCV (80.0-100.0) fL MCH (25.0-35.0) pg MCHC (31.0-37.0) g/dL RDW (11.5-15.5) % Plt Count (150-450) k/uL Neutrophils % % Lymphocytes % % Monocytes % % Eosinophils % % Basophils % % Neutrophils # (1.3-7.7) k/uL Lymphocytes # (1.0-4.8) k/uL Monocytes # (0-1.0) k/uL Eosinophils # (0-0.7) k/uL Basophils # (0-0.2) k/uL Hypochromasia PT 13.8 H (9.0-12.0) sec INR 1.4 (<1.1) APTT 26.8 (22.0-30.0) sec Sample Site ABG pH (7.35-7.45) ABG pCO2 (35-45) mmHg ABG pO2 (83-108) mmHg ABG HCO3 (21-25) mmol/L ABG Total CO2 (19-24) mmol/L ABG O2 Saturation (94-97) % ABG Base Excess mmol/L FiO2 % Sodium (137-145) mmol/L Potassium (3.5-5.1) mmol/L Chloride (98-107) mmol/L Carbon Dioxide (22-30) mmol/L Anion Gap mmol/L BUN (9-20) mg/dL Creatinine (0.66-1.25) mg/dL Est GFR (MDRD) Af Amer (>60 ml/min/1.73 sqM) Est GFR (MDRD) Non-Af (>60 ml/min/1.73 sqM) Glucose (74-99) mg/dL POC Glucose (mg/dL) 303 H (75-99) mg/dL POC Glu Extruder Tender ID Rosa Catalan Calcium (8.4-10.2) mg/dL Magnesium (1.6-2.3) mg/dL Total Bilirubin (0.2-1.3) mg/dL AST (17-59) U/L ALT (21-72) U/L Alkaline Phosphatase (38-126) U/L Total Creatine Kinase (55-170) U/L CK-MB (CK-2) (0.0-2.4) ng/mL CK-MB (CK-2) Rel Index Troponin I (0.000-0.034) ng/mL Total Protein (6.3-8.2) g/dL Albumin (3.5-5.0) g/dL Urine Color Light Yellow Urine Appearance Clear (Clear) Urine pH 5.0 (5.0-8.0) Ur Specific Reagan 1.009 (1.001-1.035) Urine Protein Negative (Negative) Urine Glucose (UA) Negative (Negative) Urine Ketones Negative (Negative) Urine Blood Negative (Negative) Urine Nitrite Negative (Negative) Urine Bilirubin Negative (Negative) Urine Urobilinogen <2.0 (<2.0) mg/dL Ur Leukocyte Esterase Negative (Negative) 07/15/16 Range/Units 12:13 WBC (3.8-10.6) k/uL RBC (4.30-5.90) m/uL Hgb (13.0-17.5) gm/dL Hct (39.0-53.0) % MCV (80.0-100.0) fL MCH (25.0-35.0) pg MCHC (31.0-37.0) g/dL RDW (11.5-15.5) % Plt Count (150-450) k/uL Neutrophils % % Lymphocytes % % Monocytes % % Eosinophils % % Basophils % % Neutrophils # (1.3-7.7) k/uL Lymphocytes # (1.0-4.8) k/uL Monocytes # (0-1.0) k/uL Eosinophils # (0-0.7) k/uL Basophils # (0-0.2) k/uL Hypochromasia PT (9.0-12.0) sec INR (<1.1) APTT (22.0-30.0) sec Sample Site RT RADIAL ABG pH 7.09 L* (7.35-7.45) ABG pCO2 55 H (35-45) mmHg ABG pO2 >420 H (83-108) mmHg ABG HCO3 16 L (21-25) mmol/L ABG Total CO2 17 L (19-24) mmol/L ABG O2 Saturation 100.0 H (94-97) % ABG Base Excess -12.4 mmol/L FiO2 100 % Sodium (137-145) mmol/L Potassium (3.5-5.1) mmol/L Chloride (98-107) mmol/L Carbon Dioxide (22-30) mmol/L Anion Gap mmol/L BUN (9-20) mg/dL Creatinine (0.66-1.25) mg/dL Est GFR (MDRD) Af Amer (>60 ml/min/1.73 sqM) Est GFR (MDRD) Non-Af (>60 ml/min/1.73 sqM) Glucose (74-99) mg/dL POC Glucose (mg/dL) (75-99) mg/dL POC Glu Extruder Tender ID Calcium (8.4-10.2) mg/dL Magnesium (1.6-2.3) mg/dL Total Bilirubin (0.2-1.3) mg/dL AST (17-59) U/L ALT (21-72) U/L Alkaline Phosphatase (38-126) U/L Total Creatine Kinase (55-170) U/L CK-MB (CK-2) (0.0-2.4) ng/mL CK-MB (CK-2) Rel Index Troponin I (0.000-0.034) ng/mL Total Protein (6.3-8.2) g/dL Albumin (3.5-5.0) g/dL Urine Color Urine Appearance (Clear) Urine pH (5.0-8.0) Ur Specific Reagan (1.001-1.035) Urine Protein (Negative) Urine Glucose (UA) (Negative) Urine Ketones (Negative) Urine Blood (Negative) Urine Nitrite (Negative) Urine Bilirubin (Negative) Urine Urobilinogen (<2.0) mg/dL Ur Leukocyte Esterase (Negative) - Radiology Data Radiology results: report reviewed (CT and the brain reveals no acute intercranial hemorrhage or mass or shift.), image reviewed (Chest x-ray #1 shows endotracheal tube in place. Questionable disease and near the upper lobe. Chest x-ray #2 shows gastric tube extending to the left mainstem bronchus. Chest x-ray #3 so removal of gastric tube from the bronchus. Small right apical pneumothorax. Chest x-ray #4 shows interval chest tube placement with resolution of pneumothorax. Computed tomography scan of the aorta does show 10% right-sided pneumothorax. There is aortic aneurysm and dissection that appears to be unchanged from previous. There is questionable gallbladder wall thickening.) Disposition Clinical Impression: Cardiac arrest, Respiratory failure Disposition: ADMITTED IP TO THIS HOSP Condition: Critical Referrals: Neptali Conn DO [Primary Care Provider] - 1-2 days Decision Time: 15:00
[2016-07-15 09:53] VITALS: TEMP 97.8
[2016-07-15 10:00] LABS: Basophils # (A) 0.1 k/uL (0-0.2); Basophils % (A) 0 %; CH 29.7; CHCM 29.9; Eosinophils # (A) 0.1 k/uL (0-0.7); Eosinophils % (A) 1 %; HCT 42.1 % (39.0-53.0); HDW 2.67; HGB 13.3 gm/dL (13.0-17.5); Hypochromasia Marked; Luc # (Auto) 0.17; Luc % (Auto) 1; Lymphocytes # (A) 2.6 k/uL (1.0-4.8); Lymphocytes % (A) 16 %; MCH 31.4 pg (25.0-35.0); MCHC 31.5 g/dL (31.0-37.0); MCV 99.7 fL (80.0-100.0); Mean Platelet Volume 7.2; Monocytes # (A) 0.6 k/uL (0-1.0); Monocytes % (A) 4 %; Neutrophils # (A) 13.3 k/uL (1.3-7.7); Neutrophils % (A) 79 %; RBC 4.22 m/uL (4.30-5.90); RDW 13.5 % (11.5-15.5); WBC 16.9 k/uL (3.8-10.6); WBC (Perox) 17.74
[2016-07-15 10:00] LABS: Glucose,Whole Blood 303 mg/dL (75-99)
[2016-07-15 10:08] LABS: INR 1.4 (<1.1); Partial Thromboplastin Time 26.8 sec (22.0-30.0); Prothrombin Time 13.8 sec (9.0-12.0)
[2016-07-15 10:10] LABS: ALT 98 U/L (21-72); AST 130 U/L (17-59); Alkaline Phosphatase 42 U/L (38-126); Anion Gap 21 mmol/L; Blood Urea Nitrogen 27 mg/dL (9-20); Calcium 8.3 mg/dL (8.4-10.2); Carbon Dioxide 11 mmol/L (22-30); Chloride 107 mmol/L (98-107); Glucose 358 mg/dL (74-99); Magnesium 2.8 mg/dL (1.6-2.3); Non-African American GFR(MDRD) 55 (>60 ml/min/1.73 sqM); Sodium 139 mmol/L (137-145); Total Bilirubin 0.8 mg/dL (0.2-1.3); Total Protein 5.3 g/dL (6.3-8.2)
[2016-07-15 10:12] LABS: Potassium 4.7 mmol/L (3.5-5.1)
--- NOTE | 2016-07-15 10:18 | XR ---
EXAMINATION TYPE: XR chest 1V portable DATE OF EXAM: 07/15/2016 COMPARISON: Prior chest x-ray 12 April 2016 HISTORY: Dyspnea, status post intubation TECHNIQUE: Single frontal view of the chest is obtained. FINDINGS: There are overlying leads, defibrillator pad, underlying backboard. Endotracheal tube is s uperimposed over the tracheal air column, there is overlying artifact. Costophrenic angles are not in cluded on the exam. No evident pneumothorax or pleural effusion. Intracardiac defibrillator leads are stable. Question some airspace disease in the perihilar location on the left. IMPRESSION: Patient is rotated. Interval intubation. Possible airspace disease left upper lobe. Nadeen facts are present, follow-up recommended.
[2016-07-15 10:30] LABS: Appearance,Urine Clear (Clear); Bilirubin,Urine Negative (Negative); Glucose,Urine (UA) Negative (Negative); Ketones,Urine Negative (Negative); Leukocyte Esterase,Urine Negative (Negative); Nitrite,Urine Negative (Negative); Protein,Urine Negative (Negative); Specific Gravity,Urine 1.009 (1.001-1.035); UA Billing (MACRO vs. MICRO) CHEM; Urobilinogen,Urine <2.0 mg/dL (<2.0)
[2016-07-15] MEDS ORDERED: LORazepam 2 MG/ML SYRINGE IV PRN (10:30)
[2016-07-15] MEDS ORDERED: PROPOFOL 500 MG in EMPTY BAG 1 BAG IV SCH (10:30)
[2016-07-15 10:36] LABS: Troponin I 0.037 ng/mL (0.000-0.034)
[2016-07-15] MEDS ORDERED: SODIUM CHLORIDE 0.9% 500 ML IV STA (10:40)
[2016-07-15] MEDS ORDERED: NOREPINEPHRIN 4 MG-0.9% NS PMX 4 MG/250 ML ML IV SCH (10:45)
--- NOTE | 2016-07-15 11:14 | XR ---
EXAMINATION TYPE: XR chest 1V DATE OF EXAM: 07/15/2016 COMPARISON: Prior chest x-ray same date earlier time HISTORY: Intubation TECHNIQUE: Single frontal view of the chest is obtained. FINDINGS: Endotracheal tube is overlying the tracheal air column, NG tube shows a selective left myles nstem placement. There are overlying leads, defibrillator pad. No pneumothorax or pleural effusion. H eart is enlarged. There may be some improvement in the upper lobe airspace disease. Cardiac defibrill ator leads are stable. IMPRESSION: NG tube within the left mainstem bronchus, report relayed to Dr. Arias telephonically at the time of interpretation.
--- NOTE | 2016-07-15 12:07 | CT ---
EXAMINATION TYPE: CT brain wo con DATE OF EXAM: 07/15/2016 COMPARISON: NONE HISTORY: cardiac arrest; unresponsive CT DLP: 1108.4 mGycm Automated exposure control for dose reduction was used. FINDINGS: Some lucencies are present within the superficial veins involving the right temporal region as well a s along the muscles of mastication likely introduced during IV access. There is no hemorrhage or hydr ocephalus. No depressed skull fracture. Cerebral vascular calcifications are present. Age-related atr ophy change is present. IMPRESSION: No acute intracranial hemorrhage, mass effect, or midline shift is seen.
[2016-07-15 12:15] LABS: ABG PCO2 55 mmHg (35-45); ABG PH 7.09 (7.35-7.45); ABG PO2 >420 mmHg (83-108)
[2016-07-15 12:16] LABS: ABG Base Excess -12.4 mmol/L; ABG HCO3 16 mmol/L (21-25); ABG TCO2 17 mmol/L (19-24)
[2016-07-15 12:27] VITALS: RESP 16
--- NOTE | 2016-07-15 12:32 | CT ---
CT angiogram of the thoracic and abdominal aorta HISTORY: Cardiac arrest, patient unresponsive Helical acquisition obtained pre- and postadministration of intravenous contrast to the chest and fol lowing contrast and the abdomen, three-dimensional reconstructions performed on an alternate workstat ion Correlation to previous exam dated 28 Jun 2016, CT angiogram of the aorta 17 days prior. There is a small right-sided pneumothorax present. Anterior right rib fractures are present at the se cond through seventh ribs, the anterior fourth rib shows minimal displacement. Patient is post median sternotomy. Anterior left fourth rib also shows nondisplaced fracture, nondisplaced fracture may be present at the fifth, sixth and seventh ribs anteriorly in the left additionally. Endotracheal tube i s within the tracheal air column. There is air present within the subcutaneous soft tissues at the le manuel of the anterior second rib on the right where there may be a costochondral separation. Defibrilla tor and leads are present which could cause some artifact limiting evaluation. The heart is enlarged. Aortic measurements are stable. Some air within the pulmonary vein likely introduced during the exam ination. Abdominal aorta shows a stable appearance, there is a limited dissection suspected in the infrarenal location, there is some poor enhancement of the lumen peripherally possibly due to reduced cardiac ou tput, infrarenal abdominal aorta measures 4.2 cm. Gallbladder shows questionable wall thickening, there is motion on the exam. No filling defects seen within the pulmonary arteries to suggest pulmonary embolism. No other signifi cant interval changes. See dictated report prior CT angiogram thoracic and abdominal aorta June 7. IMPRESSION: Right-sided pneumothorax, multiple anterior rib fractures. Patient is intubated. Abdomina l and thoracic aortic aneurysm not significantly changed, there may be reduced cardiac output. Correl ate to exclude cholecystitis. Case discussed with Dr. Arias telephonically at the time of interpretat ion.
--- NOTE | 2016-07-15 12:34 | XR ---
EXAMINATION TYPE: XR chest 1V portable DATE OF EXAM: 07/15/2016 COMPARISON: Prior chest x-ray same date earlier time. HISTORY: Pain TECHNIQUE: Single frontal view of the chest is obtained. FINDINGS: Small right apical pneumothorax is present. Endotracheal tube is overlying the tracheal ai r column. Question an additional tubing seen at the level of the thoracic inlet. No other significant change. IMPRESSION: Small apical right pneumothorax. Patient's rib fractures are not well seen on plain film . Question repositioning of NG tube, tip of tube at the thoracic inlet.
[2016-07-15] MEDS: LORazepam 2 MG/ML SYRINGE IV PRN ×2 (13:28→15:01)
--- NOTE | 2016-07-15 14:48 | XR ---
EXAMINATION TYPE: XR chest 1V portable DATE OF EXAM: 07/15/2016 COMPARISON: Prior chest x-ray same date at earlier time HISTORY: Status post chest tube placement TECHNIQUE: frontal view of the chest is obtained on 2 images. FINDINGS: There is been interval placement of right-sided chest tube. Pneumothorax has resolved. Sub cutaneous emphysema is present. IMPRESSION: Interval chest tube placement
[2016-07-15] MEDS ORDERED: SODIUM CHLORIDE 0.9% 1,000 ML IV SCH (15:00)
[2016-07-15] MEDS ORDERED: IPRATROPIUM-ALBUTEROL 3 ML NEB INHALATION PRN (15:00)
[2016-07-15] MEDS ORDERED: NALOXONE 0.4 MG/ML 1 ML VIAL IV PRN (15:00)
[2016-07-15 15:39] VITALS: BP 108/52; PULSE 59
[2016-07-15 16:12] LABS: Glucose,Whole Blood 194 mg/dL (75-99)
[2016-07-15] MEDS ORDERED: MORPHINE SULFATE 100 MG in SODIUM CHLORIDE 0.9% 100 ML IV SCH (16:30)
[2016-07-15] MEDS ORDERED: SODIUM CHLORIDE 0.9% 99 ML with VASOPRESSIN 20 UNIT IV SCH ×2 (16:30)
[2016-07-15] MEDS ORDERED: MORPHINE SULFATE 2 MG/ML SYRINGE IV PRN (16:35)
--- NOTE | 2016-07-15 19:44 | HP ---
DATE OF ADMISSION: 07/15/2016 Chief complaint: Unresponsiveness. HISTORY OF PRESENT ILLNESS: This 70-year-old gentleman with a past history of multiple medical problems including COPD, DJD, history of hypertension, history of coronary artery disease, multivessel involvement, CAD/coronary artery bypass grafting, ischemic cardiomyopathy, AICD placement, being followed by in the outpatient setting, was recently admitted with COPD acute exacerbation as well as influenza pneumonia. The patient went home and EMS was called today with difficulty in breathing, but the patient had a witnessed cardiopulmonary arrest and the patient was subsequently resuscitated about 40 minutes. The patient again had another arrest and subsequently patient again was resuscitated. The patient also had a CT scan which showed thoracic CT scan which also showed right-sided pneumothorax, multiple rib fractures and abdomen and thoracic aortic aneurysm which is not changed and the patient was on mechanical ventilation. The patient admitted for further evaluation and treatment. The patient continues to be unresponsive. The patient is on max dose of pressors. The patient also had ST-T changes in the monitor leads and patient being closely monitored at this time. The patient had acute severe respiratory acidosis. The patient also has multiple lab abnormalities as well. Past medical history of COPD , history of CHF, history of ischemic cardiomyopathy, history of AICD , anxiety. Medications prior to admission include: 1. Albuterol 2 puffs q.6h p.r.n. 2. Solu-Medrol Dosepak. 3. Zocor 20 mg. 4. Altace 5 mg in the morning... 5. Albuterol t.i.d. and p.r.n. 6. Lasix 20 mg each morning. 7. Perforomist 20 mg b.i.d. 8. Savaysa 60 mg in the morning. 9. Celexa 20 mg b.i.d. 10. Coreg 6.25 mg b.i.d. 11. Pulmicort 0.5 b.i.d. 12. Xanax 0.125 mg b.i.d. p.r.n. ALLERGIES: APIXABAN AND DOXYCYCLINE. FAMILY HISTORY, SOCIAL HISTORY AND REVIEW OF SYSTEMS: Could not be taken because of the patient's change in mental status. History of cancer per chart. On exam, the patient is unresponsive. Pulse 59, blood pressure is 70/16, temperature is normal, pulse ox 98% on mechanical ventilation, 50% FIO2. HEENT: Conjunctivae normal. Oral mucosa moist. NECK: No jugular venous distention. CARDIOVASCULAR: S1, S2 muffled. RESPIRATORY: Bilateral scattered rhonchi and crackles. ABDOMEN: Soft, nontender. Nervous system: Patient is unresponsive. LABS: WBC 16.9, hemoglobin 13.3, INR is 1.4. ABG showed pH of 7.79, pCO2 55 and creatinine 1.28, glucose 358, troponin 0.37. ASSESSMENT: 1. Acute cardiopulmonary arrest, possibly secondary to coronary ischemia. 2. Acute hypoxic respiratory failure secondary to congestive heart failure. 3. Chronic obstructive pulmonary disease, acute exacerbation. 4. Increased WBC. 5. Acute renal failure. 6. Increased random blood sugar, possibly diabetes mellitus type 2. 7. History of chronic obstructive pulmonary disease. 8. History of degenerative joint disease. 9. History of hyperlipidemia. 10. History of coronary artery disease, coronary artery bypass grafting. 11. History ischemic cardiomyopathy. Ejection fraction around 20%. 12. History of automatic implantable cardioverter defibrillator. 13. History of left bundle branch block. RECOMMENDATIONS AND DISCUSSION: In this 70-year-old gentleman who presented with multiple complex medical issues, the prognosis remains extremely guarded. The patient has got severe hypertension despite maximum pressor support. The patient continues to be unresponsive and the patient had prolonged cardiopulmonary resuscitation as well. The possibility of ischemic neurological injury is extremely high. The pH is 7.09. Monitor also shows significant ST-T changes, The patient had multiple abnormalities as well. I discussed the case at length with the family and at this time the family would like to go with comfort measures and recommended comfort measures with morphine drip. Once again, the prognosis is guarded. See orders for further details. MTDD
[2016-07-16] MEDS ORDERED: PANTOPRAZOLE 40 MG/10 ML VIAL IV SCH (09:00)
--- NOTE | 2016-07-16 18:38 | DS ---
DATE OF ADMISSION: 07/15/2016 DATE OF DISCHARGE: 07/15/2016 FINAL DIAGNOSES: Primary cause of is coronary artery disease and coronary ischemia. Other diagnoses: 1. Acute cardiopulmonary arrest possibly secondary to coronary ischemia. 2. Acute hypoxic respiratory failure secondary to congestive heart failure. 3. Chronic obstructive pulmonary disease, acute exacerbation. 4. Increased WBC. 5. Acute renal failure. 6. Increased random blood sugar, possibly. 7. Diabetes mellitus type 2. 8. Anoxic hypoxic brain injury. 9. Prolonged CPR. 10. History of chronic obstructive pulmonary disease. 11. History of degenerative joint disease. 12. History of hyperlipidemia. 13. History of coronary artery disease, coronary artery bypass grafting. 14. History of ischemic cardiomyopathy, ejection fraction 20%. 15. History of automatic implantable cardioverter defibrillator. 16. History of left bundle branch block. 17. NO CODE NO CPR, NO VENT. 18. COMFORT MEASURES. HISTORY OF PRESENT ILLNESS: This 70-year-old gentleman with a past history of multiple medical problems as mentioned earlier being followed by Dr. Key in the outpatient setting admitted with unresponsiveness and cardiac arrest. The patient had prolonged CPR out on the field. The patient was severely hypotensive and was monitored in ICU. However, the case was discussed with the family, because of multiple complex medical issues and prolonged CPR and multiple complex medical issues, the family decided to go with comfort measures and the ventilation was discontinued and patient succumbed to above-mentioned medical conditions. Prognosis remained extremely guarded throughout the hospital stay. Family was aware. Please refer to the ER notes and further notes for more information.
== END 2016-07-15 20:43 | disposition expired | DRG 302 ==
LOC: EC 09:29 → 6ICU 15:00
PROVIDERS: ADMIT Hospitalist; ATTEND Hospitalist
PROC: 5A1935Z Respiratory Ventilation, Less than 24 Consecutive Hours (ICD-10-PCS; principal; 2016-07-15)
PROC: 5A12012 Performance of Cardiac Output, Single, Manual (ICD-10-PCS; 2016-07-15)
PROC: 0D9670Z Drainage of Stomach with Drainage Device, Via Natural or Artificial Opening (ICD-10-PCS; 2016-07-15)
PROC: 0W9930Z Drainage of Right Pleural Cavity with Drainage Device, Percutaneous Approach (ICD-10-PCS; 2016-07-15)
DX: I25.119 Atherosclerotic heart disease of native coronary artery with unspecified angina pectoris (principal); J96.01 Acute respiratory failure with hypoxia; I71.03 Dissection of thoracoabdominal aorta; I49.01 Ventricular fibrillation; N17.9 Acute kidney failure, unspecified; G93.1 Anoxic brain damage, not elsewhere classified; S27.0XXA Traumatic pneumothorax, initial encounter; I95.9 Hypotension, unspecified; I24.9 Acute ischemic heart disease, unspecified; Z99.11 Dependence on respirator [ventilator] status; E87.2 Acidosis; J44.1 Chronic obstructive pulmonary disease with (acute) exacerbation; S22.41XA Multiple fractures of ribs, right side, initial encounter for closed fracture; I46.2 Cardiac arrest due to underlying cardiac condition; I11.0 Hypertensive heart disease with heart failure; I48.2 Chronic atrial fibrillation; I50.9 Heart failure, unspecified; Z86.74 Personal history of sudden cardiac arrest; I44.7 Left bundle-branch block, unspecified; I25.5 Ischemic cardiomyopathy; Z66 Do not resuscitate; Z51.5 Encounter for palliative care; E11.9 Type 2 diabetes mellitus without complications; D72.829 Elevated white blood cell count, unspecified; F41.9 Anxiety disorder, unspecified; E78.5 Hyperlipidemia, unspecified; M19.90 Unspecified osteoarthritis, unspecified site; Z95.810 Presence of automatic (implantable) cardiac defibrillator; Z95.1 Presence of aortocoronary bypass graft; Z79.899 Other long term (current) drug therapy; Z88.1 Allergy status to other antibiotic agents; Z88.8 Allergy status to other drugs, medicaments and biological substances; Z87.891 Personal history of nicotine dependence; Z79.51 Long term (current) use of inhaled steroids; Z79.01 Long term (current) use of anticoagulants; Z80.9 Family history of malignant neoplasm, unspecified; Z85.9 Personal history of malignant neoplasm, unspecified; Z87.01 Personal history of pneumonia (recurrent); Z86.19 Personal history of other infectious and parasitic diseases; Y84.8 Other medical procedures as the cause of abnormal reaction of the patient, or of later complication, without mention of misadventure at the time of the procedure
CPT/HCPCS: 32551; 36415; 36600; 43753; 51702; 70450; 71010; 71275; 75635; 80053; 81003; 82550; 82553; 82805; 83735; 84484; 85025; 85610; 85730; 92950; 93005; 94002; 96365; 96366; 96367; 96375; 99291